=== PATIENT | female | born 1950 | race Caucasian/White ===

== ENCOUNTER → 2016-10-17 | Outpatient (CLI) | payer OTHER, MEDICAID | LOC: FIMAGING 15:42 | PROVIDERS: ATTEND Physical Medicine & Rehabilitation | DX: M53.3 Sacrococcygeal disorders, not elsewhere classified (principal); M51.36 Other intervertebral disc degeneration, lumbar region; D25.9 Leiomyoma of uterus, unspecified; M76.01 Gluteal tendinitis, right hip; M76.02 Gluteal tendinitis, left hip ==

== ENCOUNTER → 2017-11-02 | Outpatient (CLI) | payer OTHER, MEDICAID | LOC: FIMAGING 16:04 | PROVIDERS: ATTEND Psychiatry & Neurology Neurology | DX: R29.818 Other symptoms and signs involving the nervous system (principal) ==

== ENCOUNTER → 2017-11-03 | Outpatient (CLI) | payer OTHER, MEDICAID ==
--- NOTE | 2017-11-07 11:10 | CPEEG ---
[f rep st] ELECTROENCEPHALOGRAM DATE OF STUDY: 11/03/2017 INTERPRETATION: This 4-hour video EEG recording shows a mild degree of bitemporal slowing. These fi ndings would be consistent with a mild focal disturbance of cerebral function in these regions. Ther e were no definite epileptogenic abnormalities present in the awake or sleep recordings. During the video EEG monitoring session, the patient did not have any clinical events. If there is further clinical concern about spells or seizures, then inpatient video EEG monitoring wo uld be recommended. REPORT: This 4-hour video EEG contains 10 Hz alpha activity to the posterior head regions. There wa s no abnormal activation at rest or during photic stimulation or hyperventilation. The patient inter mittently became drowsy and fell asleep during the study. During drowsiness, the patient had episode s of rhythmic bitemporal slowing. This can be a normal variant. In addition, at baseline, there was some mild bitemporal slowing at baseline. As the patient fell into deeper sleep, there were no defi nite potentially epileptogenic abnormalities. No clinical events were recorded during the video EEG monitoring session. If there is further clinical concern about spells or seizures, then inpatient video EEG monitoring wo uld be recommended. /[id number]/MODL
== END ==
LOC: FCPNEURO 12:02
PROVIDERS: ATTEND Psychiatry & Neurology Neurology
DX: R29.818 Other symptoms and signs involving the nervous system (principal); R94.01 Abnormal electroencephalogram [EEG]

== ENCOUNTER → 2018-08-16 | Outpatient (CLI) | payer OTHER, MEDICAID | LOC: FIMAGING 14:16 | PROVIDERS: ATTEND Physician Assistant | DX: Z12.31 Encounter for screening mammogram for malignant neoplasm of breast (principal) ==